=== PATIENT | male | born 1945 | race Asian ===

== ENCOUNTER 2024-03-15 09:51 | Emergency (ER) | payer OTHER, SELFPAY ==
[2024-03-15] VITALS (10 sets, daily range): BP systolic 122–166; BP diastolic 58–73; PULSE 66–78; RESP 13–23; TEMP 36.7; O2SAT 96–100; BMI 23.8
--- NOTE | 2024-03-15 10:05 | DI.RAD.S_ITS ---
PROCEDURE: XR CHEST 1V INDICATIONS: Shortness of breath TECHNIQUE: One view of the chest was acquired. COMPARISON: None. FINDINGS: Surgical changes and devices: None. Lungs and pleura: Lungs are clear. No pleural effusions or pneumothorax. Mediastinum: Mediastinal contours appear normal. Heart size is normal. Bones and chest wall: No suspicious bony lesions. Overlying soft tissues appear unremarkable. IMPRESSION: No acute cardiopulmonary abnormality is seen. Dictated by: Mikal Munoz M.D. on 03/15/2024 at 11:20 Approved by: Mikal Munoz M.D. on 03/15/2024 at 11:21
--- NOTE | 2024-03-15 10:09 | EKG_ITS ---
[address] [address] Test Date: 2024-03-15 Pat Name: Jason Spence Department: Room: Gender: Male Cell Installer: JOSHUA : 1945 Requested By: Order Number: [id number] Reading MD: Gregroy Fagan Measurements Intervals [place] Rate: 69 P: 35 MS: 216 QRS: 18 QRSD: 84 T: 34 QT: 368 QTc: 394 Interpretive Statements Sinus rhythm with 1st degree AV block Electronically Signed On 03-15-2024 20:04:43 PST by Gregory Fagan
[2024-03-15 10:16] LABS: Add Manual Diff / Slide Review NO; Basophils Absolute Auto 100 /uL (0-100); Basophils Percent Auto 1.3 % (0-2); Eosinophils Absolute Auto 600 /uL (0-450); Eosinophils Percent Auto 8.5 % (2-4); Hematocrit 43.2 % (41-53); Hemoglobin 14.5 g/dL (13.5-17.5); Lymphocytes Absolute Auto 2200 /uL (1100-4500); Mean Corpuscular HGB Conc 33.7 % (30-36); Mean Corpuscular Hemoglobin 30.3 PG (26-34); Mean Corpuscular Volume 90.1 fL (80-100); Monocytes Absolute Auto 600 /uL (0-900); Monocytes Percent Auto 8.2 % (3-14); Neutrophils Absolute Auto 4000 /uL (1500-7000); Platelet Count 280 X10^3/uL (150-400); Red Cell Distribution Width 12.9 % (11.6-14.8); White Blood Cell Count 7.6 X10^3/uL (4.5-11.0)
[2024-03-15 10:26] LABS: INR 0.9 (0.9-1.3); Prothrombin Time 10.4 SECONDS (9.4-12.5)
[2024-03-15 10:30] LABS: Alanine Aminotransferase 39 IU/L (<50); Albumin Globulin Ratio 1.3 (1.0-2.8); Alkaline Phosphatase 92 U/L (38-126); Aspartate Aminotransferase 37 IU/L (17-59); BUN Creatinine Ratio 19.4 (6-22); Bilirubin Total 0.5 mg/dL (0.2-1.3); Blood Urea Nitrogen 20 mg/dL (9-20); Calcium 9.2 mg/dL (8.4-10.2); Carbon Dioxide 24 mmol/L (22-32); Chloride 102 mmol/L (98-107); Estimated Glomerular Filt Rate > 60 mL/min (>60); Glucose 153 mg/dL (80-110); HEMOLYSIS 25 (0-50); Potassium 4.6 mmol/L (3.4-5.1); Sodium 135 mmol/L (137-145)
[2024-03-15 10:42] LABS: NT-proBNP (BNP-Adult 18+) 33 pg/mL (<450); Troponin I < 0.012 ng/mL (0.01-0.034)
--- NOTE | 2024-03-15 10:56 | ED_ITS ---
HPI - SOB/Dyspnea General Chief Complaint: Shortness of Breath/Dyspnea Stated Complaint: Shortness of Breath Time Seen by Provider: 03/15/24 10:41 Source: patient Mode of arrival: Ambulatory Limitations: no limitations History of Present Illness HPI Narrative: Patient is a 78-year-old male history of diabetes hypertension CVA presenting today with shortness of breath. He reports that he was short of breath when he lays flat. He denies any significant shortness of breath with exertion. He has noted some lower extremity edema that has progressively gotten worse. He has absolutely no chest pain no fever chills or cough. He does report that sometimes his voice gets a little worse throughout the day. He recently flew here from [place] to help with grand children. He has no prior history of coronary artery disease or CHF. Related Data Previous Rx's Medication Instructions Recorded furosemide 20 mg tablet (Lasix) 20 mg PO DAILY PRN edema #10 tabs 03/15/24 Allergies Allergy/AdvReac Type Severity Reaction Status Date / Time No Known Drug Allergies Allergy Verified 03/15/24 10:05 Patient History Social History Smoking Status: Unknown if ever smoked Smoking Status: Unknown if ever smoked Exam Initial Vital Signs Initial Vital Signs: Vital Signs Temperature 98.1 F 03/15/24 09:56 Pulse Rate 77 03/15/24 09:56 Respiratory Rate 17 03/15/24 09:56 Blood Pressure 166/73 H 03/15/24 09:56 Pulse Oximetry 99 03/15/24 09:56 Oxygen Delivery Method Room Air 03/15/24 09:56 GENERAL: Alert very pleasant 70-year-old Greek male and in no acute distress. HEENT: Head atraumatic,EOMI, pupils reactive, face symmetric, moist mucous membranes CARDIOVASCULAR: Regular rate and rhythm without murmurs, rubs or gallops. RESPIRATORY: Breath sounds equal bilaterally, no wheezes rales or rhonchi. ABDOMEN: Soft, nontender. Normoactive bowel sounds all 4 quadrants. No guarding or rebound. EXTREMITIES: Normal range of motion, no clubbing or +1 pitting edema edema. Neurovascularly intact NEUROLOGICAL: Alert and oriented x4.Normal gait and speech. Cranial nerves II through XII grossly intact. SKIN: Warm, dry, no laceration, no petechiae, no rashes or lesions. Course Orders Ordered: ED Orders 03/15/24 10:05 XR chest 1V Stat Complete Blood Count AUTO DIFF Stat Comprehensive Metabolic Panel Stat Lactate (Lactic Acid) Stat NT-proBNP (BNP-Adult 18+) Stat Prothrombin Time INR Stat Troponin I Stat EKG-12 Lead Stat Measure peak expiratory flow ONCE RT Consult Eval and Treat NOW 03/15/24 11:03 D Dimer Stat 03/15/24 11:24 CT angio chest PE protocol Stat Vital Signs Vital signs: Vital Signs - 8 hr 03/15/24 10:02 03/15/24 10:04 03/15/24 10:04 Pulse Rate 78 73 Respiratory Rate 18 Blood Pressure 166/73 H Pulse Oximetry 96 100 Oxygen Delivery Method 03/15/24 10:30 03/15/24 10:30 03/15/24 11:00 Pulse Rate 66 Respiratory Rate 16 Blood Pressure 141/61 H 142/65 H Pulse Oximetry 100 Oxygen Delivery Method 03/15/24 11:00 03/15/24 11:46 03/15/24 11:47 Pulse Rate 76 70 68 Respiratory Rate 23 14 Blood Pressure Pulse Oximetry 99 98 Oxygen Delivery Method Room Air Room Air 03/15/24 11:47 03/15/24 12:00 03/15/24 12:00 Pulse Rate 72 Respiratory Rate 13 Blood Pressure 137/60 131/64 Pulse Oximetry 100 Oxygen Delivery Method 03/15/24 12:30 03/15/24 12:30 03/15/24 13:00 Pulse Rate 72 75 Respiratory Rate 13 17 Blood Pressure 122/58 L Pulse Oximetry 100 100 Oxygen Delivery Method Room Air 03/15/24 13:00 Pulse Rate Respiratory Rate Blood Pressure 125/59 L Pulse Oximetry Oxygen Delivery Method MDM - SOB/Dyspnea Lab Data 03/15/24 10:05 03/15/24 10:05 Labs: Lab Results 03/15/24 03/15/24 Range/Units 10:05 11:03 WBC 7.6 (4.5-11.0) X10^3/uL RBC 4.80 (4.5-5.9) X10^6/uL Hgb 14.5 (13.5-17.5) g/dL Hct 43.2 (41-53) % MCV 90.1 (80-100) fL MCH 30.3 (26-34) PG MCHC 33.7 (30-36) % RDW 12.9 (11.6-14.8) % Plt Count 280 (150-400) X10^3/uL Neut % (Auto) 53.0 (50-75) % Lymph % (Auto) 29.0 (25-40) % [place] % (Auto) 8.2 (3-14) % Eos % (Auto) 8.5 H (2-4) % Baso % (Auto) 1.3 (0-2) % Neut # (Auto) 4000 (7269-1022) /uL Lymph # (Auto) 2200 (9249-5312) /uL [place] # (Auto) 600 (0-900) /uL Eos # (Auto) 600 H (0-450) /uL Baso # (Auto) 100 (0-100) /uL PT 10.4 (9.4-12.5) SECONDS INR 0.9 (0.9-1.3) D-Dimer 835 H (<500) ng/ml Sodium 135 L (137-145) mmol/L Potassium 4.6 (3.4-5.1) mmol/L Chloride 102 (98-107) mmol/L Carbon Dioxide 24 (22-32) mmol/L BUN 20 (9-20) mg/dL Creatinine 1.03 (0.66-1.25) mg/dL Estimated GFR > 60 (>60) mL/min BUN/Creatinine Ratio 19.4 (6-22) Glucose 153 H (80-110) mg/dL Lactate 1.0 (0.7-2.1) mmol/L Calcium 9.2 (8.4-10.2) mg/dL Total Bilirubin 0.5 (0.2-1.3) mg/dL AST 37 (17-59) IU/L ALT 39 (<50) IU/L Alkaline Phosphatase 92 (38-126) U/L Troponin I < 0.012 (0.01-0.034) ng/mL NT-Pro-B Natriuret Pep 33 (<450) pg/mL Total Protein 9.0 H (6.3-8.2) g/dL Albumin 5.0 (3.5-5.0) g/dL Globulin 4.0 (1.7-4.1) g/dL Albumin/Globulin Ratio 1.3 (1.0-2.8) Imaging Data Chest x-ray: Radiologist's Impression: PROCEDURE: XR CHEST 1V INDICATIONS: Shortness of breath TECHNIQUE: One view of the chest was acquired. COMPARISON: None. FINDINGS: Surgical changes and devices: None. Lungs and pleura: Lungs are clear. No pleural effusions or pneumothorax. Mediastinum: Mediastinal contours appear normal. Heart size is normal. Bones and chest wall: No suspicious bony lesions. Overlying soft tissues appear unremarkable. IMPRESSION: No acute cardiopulmonary abnormality is seen. Dictated by: Mikal Munoz M.D. on 03/15/2024 at 11:20 CT scan - chest: Radiologist's Impression: PROCEDURE: CT ANGIO CHEST PE PROTOCOL INDICATIONS: sob with elevated dimer and flight TECHNIQUE: After the administration of intravenous contrast, 2 mm thick sections acquired from the pulmonary apices to the posterior costophrenic angles. 3-dimensional maximum intensity projection (MIP) coronal and sagittal reformats were then acquired through the thorax. For radiation dose reduction, the following was used: automated exposure control, adjustment of mA and/or kV according to patient size. COMPARISON: None. FINDINGS: Image quality: Diagnostic. Pulmonary arteries: Pulmonary arteries are normal in size, and demonstrate no intraluminal filling defects to suggest central pulmonary embolism. Lower Neck: No enlarged lymph nodes. Thyroid: Enlarged thyroid gland with suggestion of bilateral thyroid lobes and left thyroid parenchymal calcification. Axillae: No enlarged lymph nodes. Chest Wall: Unremarkable. Bones: No aggressive appearing bony lesions. Lungs and Pleura: No pneumothorax or pleural effusions. Dependent atelectasis in posterior aspect of bilateral lung carrillo are seen. No consolidation or suspicious nodules. Heart: Heart size is mildly enlarged. No pericardial effusion. Thoracic Vessels: No aortic aneurysm. Mediastinum and Lissy: No enlarged lymph nodes. Esophagus: No wall thickening. No significant hiatal hernia. Upper Abdomen: Visualized upper abdomen solid organs and bowel loops appear normal. IMPRESSION: 1. No pulmonary embolus. No thoracic aortic aneurysm or gross dissection. 2. Dependent atelectasis in posterior aspect of bilateral lower lung carrillo. No focal infiltrate, pleural effusion or pneumothorax. 3. Mild cardiomegaly, no pericardial effusion. No mediastinal or hilar lymphadenopathy. Dictated by: Everardo Jansen M.D. on 03/15/2024 at 12:06 ECG Data Attestation: I personally reviewed and interpreted this ECG as follows: Interpretation: Normal sinus rhythm rate 69 UT interval 216 QRS 84 QTC 394 patient has a first- degree AV block no prior EKGs to compare he is on metoprolol MDM Narrative Medical decision making narrative: MDM CC: Shortness of breath Complicating co-morbidities: Hypertension, diabetes, CVA on clopidogrel Medical records reviewed: None Differential considered: Acute coronary syndrome CHF pulmonary embolism, anemia Exam documented above, pertinent findings include: Alert well-appearing 78-year-old male he does have some lower extremity peripheral edema but lung sounds are clear no significant conversational dyspnea Lab Test results independently reviewed as above. Pertinent findings: D-dimer 835 Troponin negative BNP 33 CBC no leukocytosis no anemia CMP no significant electrolyte abnormality creatinine 1.0 Lactate 1.0 Liver enzymes bilirubin within normal limits Independently reviewed EKG as above sinus rhythm first-degree AV block no priors to compare no acute ischemia Imaging studies independently reviewed: No acute cardiopulmonary process CT angio no pulmonary embolisms no infiltrate mild cardiomegaly no pericardial effusion Treatments: None Re-evaluations: Patient is breathing remained stable. No significant hypoxia Discussion: 70-year-old male has a history of diabetes hypertension hyperlipidemia CVA presenting today with orthopnea. He does have some lower extremity edema. He denies any history of congestive heart failure. BNP is undetectable troponin is negative D-dimer was rider has been 500 but less than 1000. CT scan ordered with increasing shortness of breath recent airplane flight. CT angio does not show any evidence of pulmonary embolism does show mild cardiomegaly. Patient is a normal BNP but he does have lower extremity swelling and positive orthopnea. Like he may have been on a diuretic at some point but not consistently. Discussed with he and his Lasix for 3-4 days. They understand and agree Discharge Plan Departure Patient Disposition: Home Clinical Impression: Edema, peripheral Instructions: DI for Peripheral Edema -- Bilateral Activity Restrictions/Additional Instructions: *You have been diagnosed with peripheral edema *What to do: At this time I do think you have a little bit of fluid on your lungs and legs making hard for you to breathe. Your heart and lungs look good today *Continue to take medications as directed Lasix 20 mg once a day for 3-4 days *Follow up with your primary care provider in 2-3 days or call [phone] *Return to ER if you should have increasing shortness of breath leg swelling chest pain or any new, worsening or concerning symptoms Prescriptions: New furosemide [Lasix] 20 mg tablet 20 mg PO DAILY PRN (Reason: edema) Qty: 10 0RF Stand Alone Forms: Patient Portal/API/Survey
[2024-03-15 11:10] LABS: D Dimer 835 ng/ml (<500)
--- NOTE | 2024-03-15 11:24 | DI.CT.S_ITS ---
PROCEDURE: CT ANGIO CHEST PE PROTOCOL INDICATIONS: sob with elevated dimer and flight TECHNIQUE: After the administration of intravenous contrast, 2 mm thick sections acquired from the pulmonary apices to the posterior costophrenic angles. 3-dimensional maximum intensity projection (MIP) coronal and sagittal reformats were then acquired through the thorax. For radiation dose reduction, the following was used: automated exposure control, adjustment of mA and/or kV according to patient size. COMPARISON: None. FINDINGS: Image quality: Diagnostic. Pulmonary arteries: Pulmonary arteries are normal in size, and demonstrate no intraluminal filling defects to suggest central pulmonary embolism. Lower Neck: No enlarged lymph nodes. Thyroid: Enlarged thyroid gland with suggestion of bilateral thyroid lobes and left thyroid parenchymal calcification. Axillae: No enlarged lymph nodes. Chest Wall: Unremarkable. Bones: No aggressive appearing bony lesions. Lungs and Pleura: No pneumothorax or pleural effusions. Dependent atelectasis in posterior aspect of bilateral lung carrillo are seen. No consolidation or suspicious nodules. Heart: Heart size is mildly enlarged. No pericardial effusion. Thoracic Vessels: No aortic aneurysm. Mediastinum and Lissy: No enlarged lymph nodes. Esophagus: No wall thickening. No significant hiatal hernia. Upper Abdomen: Visualized upper abdomen solid organs and bowel loops appear normal. IMPRESSION: 1. No pulmonary embolus. No thoracic aortic aneurysm or gross dissection. 2. Dependent atelectasis in posterior aspect of bilateral lower lung carrillo. No focal infiltrate, pleural effusion or pneumothorax. 3. Mild cardiomegaly, no pericardial effusion. No mediastinal or hilar lymphadenopathy. Dictated by: Everardo Jansen M.D. on 03/15/2024 at 12:06 Approved by: Everardo Jansen M.D. on 03/15/2024 at 12:19
== END 2024-03-15 13:27 | disposition home or self-care (01) ==
PROVIDERS: Emergency Provider Emergency Medicine
DX: R60.0 Localized edema (principal); E11.9 Type 2 diabetes mellitus without complications; I10 Essential (primary) hypertension; R79.89 Other specified abnormal findings of blood chemistry; I44.0 Atrioventricular block, first degree
CPT/HCPCS: 36415; 71045; 71275; 80053; 83605; 83880; 84484; 85025; 85379; 85610; 93005; 99283; 99284; Q9967